=== PATIENT | female | born 1940 | race Caucasian/White ===

== ENCOUNTER → 2025-05-19 | Emergency (ER) | payer OTHER ==
[~2025-05-19] VITALS: Ht 160 cm; Wt 54.0 kg
[~2025-05-19] MED LIST: ACCU-CHEK COMFORT CURVE STRIP VI SCH; ACETAMINOPHEN 325 MG TAB PO PRN; DEXTROSE (50%) 50ML SYRG IV PRN; HYDROcodone-ACET 5/325MG TAB PO PRN; InsuLIN REG 1unit/0.01ml Soln (100units/ml) SC SCH; LISINOPRIL 5 MG TAB PO ONE; LISINOPRIL 5 MG TAB PO SCH; MORPHINE SULFATE INJ 2 MG/ml SYRG IV PRN; ONDANSETRON HCL 4 MG/2 ML VIAL IV PRN; VANCOMYCIN PER PHARMACY 0 MG IV SCH; cefTRIAXone 1GM/50ML D5W 50 ML IV ONE; cefTRIAXone 1GM/50ML D5W 50 ML IV SCH
[2025-05-19 10:24] VITALS: TEMP 98
--- NOTE | 2025-05-19 10:35 | ED.PDOC ---
History of Present Illness(SKN HPI Comments 74 y.o female with PMHx of HTN and DM, presents to the ED for a chief complaint of left foot pain. Patient reports being seen at this hospital about 2 weeks ago for her foot pain, was dx with a fracture but never followed up with PCP or orthopedic and now states pain is worsening. Patient presents with discoloration to the second toe with no discharge noted. Patient is a poor historian, states she does not want to be admitted at this time. She denies any other symptoms or pain. Chief Complaint: Extremity Swelling Time Seen by MD: 10:20 Primary Care Provider: NONE History of Present Illness: Nurses Notes, Medications, Allergies Allergies: Coded Allergies: NO KNOWN ALLERGIES (Unverified , 05/19/25) Information Source: Patient Mode of Arrival: Wheelchair Severity: Moderate Timing: Weeks (2) Duration: Since onset Location: Foot Mechanism: Preceding Wound Object: None Wound Type: Other Associated Signs and Symptoms: Pain Past Medical History PAST MEDICAL HISTORY: DM, HTN Surgical History: Denies all surgeries LIFE SKILLS EDUCATOR History: No Pertinent LIFE SKILLS EDUCATOR History Family History Family History: Reviewed,noncontributory to illness Social History Smoker: Non-Smoker Alcohol: Denies ETOH Use Drugs: Denies Drug Use Lives In: Home Constitutional: denies: chills, diaphoresis, fatigue, fever, malaise, sweats, weakness, others EENTM: denies: blurred vision, double vision, ear bleeding, ear discharge, ear drainage, ear pain, ear ringing, eye pain, eye redness, hearing loss, mouth pain, mouth swelling, nasal discharge, nose bleeding, nose congestion, nose pain, photophobia, tearing, throat pain, throat swelling, voice changes, others Respiratory: denies: cough, hemoptysis, orthopnea, SOB at rest, shortness of breath, SOB with excertion, stridor, wheezing, others Cardiovascular: denies: chest pain, dizzy spells, diaphoresis, Dyspnea on exertion, edema, irregular heart beat, left arm pain, lightheadedness, palpitations, PND, syncope, others Gastrointestinal: denies: abdomen distended, abdominal pain, blood streaked bowels, constipated, diarrhea, dysphagia, difficulty swallowing, hematemesis, melena, nausea, poor appetite, poor fluid intake, rectal bleeding, rectal pain, vomiting, others Genitourinary: denies: abnormal vagina bleeding, burning, dyspareunia, dysuria, flank pain, frequency, hematuria, incontinence, pain, , vagina discharge, urgency, others Neurological: denies: dizziness, fainting, headache, left sided numbness, left sided weakness, numbness, paresthesia, pre-existing deficit, right sided numbness, right sided weakness, seizure, speech problems, tingling, tremors, weakness, others Musculoskeletal: reports: others (left foot pain ); denies: back pain, gout, joint pain, joint swelling, muscle pain, muscle stiffness, neck pain Integumetry: reports: wounds (left foot, second toe discoloration ); denies: bruises, change in color, change in hair/nails, dryness, laceration, lesions, lumps, rash, others Allergic/Immunocompromised: denies: Difficulty Healing, Frequent Infections, Hives, Itching, others Hematologic/Lymphatic: denies: anemia, blood clots, easy bleeding, easy bruising, swollen glands, others Endocrine: denies: excessive hunger, excessive sweating, excessive thirst, excessive urination, flushing, intolerance to cold, intolerance to heat, une xplained weight gain, unexplained weight loss, others Psychiatric: denies: anxiety, bipolar disorder, depression, hopeless, panic disorder, schizophrenia, sleepless, suicidal, others All Other Systems: Reviewed and Negative Physical Exam General Appearance: Moderate Distress HEENT: Normal ENT Inspection, Pharynx Normal, TMs Normal Neck: Full Range of Motion, Non-Tender, Normal, Normal Inspection Respiratory: Chest Non-Tender, Lungs Clear, No Accessory Muscle Use, No Respiratory Distress, Normal Breath Sounds Cardiovascular: No Edema, No JVD, No Murmur, No Gallop, Normal Peripheral Pulses, Regular Rate/Rhythm Breast Exam: Deferred Gastrointestinal: No Organomegaly, Non Tender, No Pulsatile Mass, Normal Bowel Sounds, Soft Genitalia: Deferred Pelvic: Deferred Rectal: Deferred Extremities: No calf tenderness, Normal capillary refill, No pedal edema, Other (Discoloration of the left foot 2nd digit with deformity) Musculoskeletal : Apperance: Normal Neurologic: Alert, machine packager II-XII nml as Tested, Motor Weakness, Normal Affect, Normal Mood, No Sensory Deficits Cerebellar Function: Normal Reflexes: Normal Skin: Dry, Normal Color, Warm Lymphatic: No Adenopathy Was a procedure done? Was a procedure done?: No Differential Diagnosis (INTG) Differential Diagnosis: N/A Differential Diagnosis: Cellulitis, Osteomyelitis Abscess: Bacteremia, Felon Differential Diagnosis: Cellulitis, Open Fracture, Osteomyelitis X-Ray, Labs, Meds, VS Vital Signs Date Time Temp Pulse Resp B/P (MAP) Pulse Ox O2 Delivery O2 Flow Rate FiO2 05/19/25 11:45 96 20 158/119 (132) 96 05/19/25 10:24 98.0 92 16 155/61 (92) 99 98.0 Lab Test 05/19/25 11:03 05/19/25 11:02 05/19/25 10:29 Range/Units White Blood Count 13.1 H 4.4-10.8 10^3/uL Red Blood Count 4.56 4.0-5.20 10^6/uL Hemoglobin 13.0 12.2-16.2 g/dL Hematocrit 38.5 36.0-46.0 % Mean Corpuscular Volume 84.3 80.0-100.0 fL Mean Corpuscular Hemoglobin 28.5 28.0-32.0 pg Mean Corpuscular Hemoglobin Concent 33.8 32.0-36.0 g/dL Red Cell Distribution Width 12.7 11.8-14.3 % Platelet Count 252 140-450 10^3/uL Mean Platelet Volume 8.1 6.9-10.8 fL Neutrophils (%) (Auto) 77.6 37.0-80.0 % Lymphocytes (%) (Auto) 15.0 10.0-50.0 % Monocytes (%) (Auto) 6.5 0.0-12.0 % Eosinophils (%) (Auto) 0.3 0.0-7.0 % Basophils (%) (Auto) 0.6 0.0-2.0 % Neutrophils # (Auto) 10.2 H 1.6-8.6 10 ^3/uL Lymphocytes # (Auto) 2.0 0.4-5.4 10 ^3/uL Monocytes # (Auto) 0.9 0-1.3 10 ^3/uL Eosinophils # (Auto) 0 0-0.8 10 ^3/uL Basophils # (Auto) 0.1 0-0.2 10 ^3/uL Nucleated Red Blood Cells 0.1 % Sodium Level 135 L 136-145 mmol/L Potassium Level 4.8 3.5-5.1 mmol/L Chloride Level 100 98-107 mmol/L Carbon Dioxide Level 27 20-31 mmol/L Anion Gap 8 5-15 Blood Urea Nitrogen 15 9-23 mg/dL Creatinine 0.99 0.550-1.02 mg/dL Glomerular Filtration Rate Calc 60 >90 mL/min BUN/Creatinine Ratio 15.2 10.0-20.0 Serum Glucose 347 H 74-106 mg/dL Calcium Level 10.5 H 8.7-10.4 mg/dL Lactic Acid Level 1.5 0.4-2.0 mmol/L Urine Color Light-orange Yellow Urine Clarity Turbid H Clear Urine pH 5.5 5.0-9.0 Urine Specific [place] 1.022 1.001-1.035 Urine Protein Trace H Negative Urine Ketones Negative Negative Urine Blood Negative Negative /uL Urine Nitrite Negative Negative Urine Bilirubin Negative Negative Urine Urobilinogen Normal Negative mg/dL Urine Leukocyte Esterase Trace Negative /uL Urine RBC 4 0 - 4 /hpf Urine Microscopic WBC 10 H 0-5 /HPF Urine Squamous Epithelial Cells Mod <5 /hpf Urine Bacteria Few H None Seen /hpf Urine Mucus Few None Seen Urine Yeast (Budding) Occasional None Seen /hpf Urine Glucose 4+ H Normal mg/dL Current Medications Medications (Trade) Dose Ordered Sig/Rolly Route Start Time Stop Time Status Last Admin Acetaminophen/ Hydrocodone Bitart ([place] 10/325MG Tab) 1 tab ONCE ONCE PO 05/19/25 10:30 05/19/25 10:31 DC 05/19/25 11:53 Clindamycin Phosphate 50 ml @ 50 mls/hr ONCE ONCE IV 05/19/25 10:30 05/19/25 11:29 DC 05/19/25 11:51 EXAMINATION: CT CT L FOOT WO CONTRAST IMPRESSION: Mild motion artifact. Within this limitation: Soft tissue irregularity and gas in the 2nd toe could be related to a wound and /or infection. Possible erosions in the 2nd middle phalanx. Recommend MRI to evaluate for osteomyelitis. Probable nondisplaced fracture at the 2nd proximal phalangeal head which is age-indeterminate. Skin thickening and subcutaneous edema may represent cellulitis. No evidence of an organized / drainable collection. IV Hep-Lock was established The patient was started on clindamycin IV piggyback The patient was also given [place] for the pain The urine test is positive for what seems to be a UTI The CBC shows an elevated white blood cell count of 13.1 The chemistry panel is within normal limits At this time, the patient is being admitted to the hospitalist A consult of the foot and ankle surgeon is being done We have discussed the findings with the patient and she stating that she wants to sign out against medical advice We advised her that if she signed out she would probably lose her foot but she is still debating signing out. Images Reviewed?: Images reviewed and evaluated by me Time of 1ST Reevaluation: 10:35 Reevaluation 1ST: Unchanged Patient Education/Counseling: Diagnosis, Treatment, Prognosis Family Education/Counseling: No Family Present SEPSIS Sepsis Screen Date sepsis recognized/suspect: May 19, 2025 Time Sepsis recognized/suspect: 1009 Recent Procedure: No On Antibiotic Therapy: No Respiratory Rate >20: No Heart Rate >90: No Temp<36 C (96.8 F) or >38.3 C: No SBP <90 or MAP <65 mmHG: No New Acute Mental Status Change: No Is the patient on CPAP, BIPAP,: No Physician Orders Ct L Foot Wo Contrast (05/19/25 10:26) Blood Culture (05/19/25 10:26) Heplock Iv (05/19/25 ) Vital Signs Date Time Temp Pulse Resp B/P (MAP) Pulse Ox O2 Delivery O2 Flow Rate FiO2 05/19/25 11:45 96 20 158/119 (132) 96 05/19/25 10:24 98.0 92 16 155/61 (92) 99 98.0 Laboratory Tests Test 05/19/25 11:02 05/19/25 11:03 Lactic Acid Level 1.5 mmol/L (0.4-2.0) White Blood Count 13.1 10^3/uL (4.4-10.8) H Medications Medications Dose Ordered Sig/Rolly Route Start Time Stop Time Status Last Admin Dose Admin Acetaminophen/ Hydrocodone Bitart 1 tab ONCE ONCE PO 05/19/25 10:30 05/19/25 10:31 DC 05/19/25 11:53 Clindamycin Phosphate 50 ml @ 50 mls/hr ONCE ONCE IV 05/19/25 10:30 05/19/25 11:29 DC 05/19/25 11:51 Departure 1 Departure Time of Disposition: 16:39 Impression: Primary Impression: Foot osteomyelitis, left Qualified Codes: M86.9 - Osteomyelitis, unspecified Additional Impression: UTI (urinary tract infection) Qualified Codes: N30.01 - Acute cystitis with hematuria Disposition: ADMITTED INPATIENT Admit to: Med Surg Condition: Fair Critical Care Note Critical Care Time?: No Stability Stability form required: Yes Unstable for transfer: ED Physician Assesment (Clinical assesment) Heart Score Heart Score: Heart Score Response (Comments) Value History N/A 0 EKG N/A 0 Age N/A 0 Risk Factors N/A 0 Troponin N/A 0 Total 0 I personally scribed for ALLA SANTANA MD ([email or web address]) on 05/19/25 at 10:35. Electronically submitted by Ludmila Pak ([facility]). I personally scribed for ALLA SANTANA MD ([email or web address]) on 05/19/25 at 13:23. Electronically submitted by Ludmila Pak ([facility]). ALLA SANTANA MD May 19, 2025 10:35
[2025-05-19 11:05] LABS: Urine Budding Yeast OCCASIONAL /hpf (None Seen); Urine Protein, UAD TRACE (Negative)
[2025-05-19 11:19] LABS: Hematocrit 38.5 % (36.0-46.0); Hemoglobin 13.0 g/dL (12.2-16.2); Mean Corpuscular Hemoglobin 28.5 pg (28.0-32.0); Mean Corpuscular Volume 84.3 fL (80.0-100.0); Nucleated Red Blood Cells % 0.1 %
[2025-05-19 11:29] LABS: Chloride 100 mmol/L (98-107); Potassium 4.8 mmol/L (3.5-5.1)
[2025-05-19 11:30] LABS: Anion Gap 8 (5-15); Carbon Dioxide 27 mmol/L (20-31)
[2025-05-19 11:36] LABS: BUN/Creatinine Ratio 15.2 (10.0-20.0); Blood Urea Nitrogen 15 mg/dL (9-23); Calcium 10.5 mg/dL (8.7-10.4); Glucose 347 mg/dL (74-106); Sodium 135 mmol/L (136-145)
[2025-05-19 11:45] VITALS: BP 158/119; PULSE 96; RESP 20; O2SAT 96
[2025-05-19] MEDS: CLINDAMYCIN 600MG IV 50 ML IV ONE (11:51)
[2025-05-19] MEDS: HYDROcodone-ACET 10/325MG TAB PO ONE (11:53)
--- NOTE | 2025-05-19 12:38 | DVH ---
EXAMINATION: CT CT L FOOT WO CONTRAST INDICATION: pain and infection COMPARISON: None TECHNIQUE: CT of the left foot was performed without contrast. Volume transverse images were obtained reconstructed in multiple planes using bone and soft tissue algorithms. CTDI vol: 7.8 mGy ; DLP: 188 mGy cm. FINDINGS: Mild limitation secondary to motion artifact. Bones: Possible cortical erosions involving the 2nd middle phalanx. There is a linear lucency at the 2nd proximal phalangeal head (series 602, image 54). Additional cortical irregularities in the metat arsals which is likely due to motion artifact. Plantar and Achilles insertion calcaneal enthesophytes . 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 Soft tissues: Scattered skin thickening and subcutaneous edema. No evidence of an organized / drainab le fluid collection. Scattered vascular calcifications. There is a small amount of soft tissue gas al valerie the plantar aspect of the 2nd toe. There is also a small amount of mixed high/ low density and sk in irregularity along the proximal nail bed. IMPRESSION: Mild motion artifact. Within this limitation: Soft tissue irregularity and gas in the 2nd toe could be related to a wound and/or infection. Possible erosions in the 2nd middle phalanx. Recommend MRI to evaluate for osteomyelitis. Probable nondisplaced fracture at the 2nd proximal phalangeal head which is age-indeterminate. Skin thickening and subcutaneous edema may represent cellulitis. No evidence of an organized / draina ble collection.
== END | disposition home or self-care (01) ==
LOC: ER 10:08 → EDBD 10:08 → OVERFLOW 18:47 → UNDOADMIN 18:47 → UNDODISIN 20:48
DX: M86.9 Osteomyelitis, unspecified (principal); N39.0 Urinary tract infection, site not specified; E11.9 Type 2 diabetes mellitus without complications; I10 Essential (primary) hypertension
CPT/HCPCS: 36415; 73700; 80048; 81001; 83605; 85025; 87040; 96365; 99285; J3490; G0378